=== PATIENT | female | born 1960 | race Caucasian/White ===

== ENCOUNTER 2023-02-05 10:22 | Outpatient (CLI) | payer BC, SELFPAY | END 2023-02-05 10:23 | disposition home or self-care (01) | PROVIDERS: PCP Internal Medicine; Visit Provider Obstetrics & Gynecology | DX: Z01.419 Encounter for gynecological examination (general) (routine) without abnormal findings (principal); Z13.6 Encounter for screening for cardiovascular disorders; Z87.448 Personal history of other diseases of urinary system | CPT/HCPCS: 80061; 82947; 87086 ==

== ENCOUNTER 2023-06-12 11:47 | Outpatient (CLI) | payer BC, SELFPAY ==
--- NOTE | 2023-06-12 13:01 | W.ANESCHARGE ---
Anesthesia Charges Start Date/Time Anesthesia Start Date: 06/12/23 Anesthesia Start Time: 12:56 Stop Date/Time Anesthesia Stop Date: 06/12/23 Anesthesia Stop Time: 13:28
--- NOTE | 2023-06-12 13:31 | W.ANESCHARGE ---
Anesthesia Charges Start Date/Time Anesthesia Start Date: 06/12/23 Anesthesia Start Time: 12:56 Stop Date/Time Anesthesia Stop Date: 06/12/23 Anesthesia Stop Time: 13:28
== END 2023-06-12 11:48 | disposition home or self-care (01) ==
LOC: OP CLINIC 11:48
PROVIDERS: PCP Internal Medicine; Visit Provider Internal Medicine
DX: Z12.11 Encounter for screening for malignant neoplasm of colon (principal); K63.5 Polyp of colon; Z86.010 Personal history of colon polyps
CPT/HCPCS: 00811; 45385; 88305; J2371; J2405; J2704

== ENCOUNTER 2024-06-23 08:27 | Outpatient (CLI) | payer MEDICARE, BC, SELFPAY | END 2024-06-23 08:28 | disposition home or self-care (01) | PROVIDERS: PCP Nurse Practitioner Family; Visit Provider Nurse Practitioner Family | DX: Z00.00 Encounter for general adult medical examination without abnormal findings (principal); M85.80 Other specified disorders of bone density and structure, unspecified site; R31.29 Other microscopic hematuria; Z13.6 Encounter for screening for cardiovascular disorders; Z13.0 Encounter for screening for diseases of the blood and blood-forming organs and certain disorders involving the immune mechanism | CPT/HCPCS: 80053; 80061; 81001; 85025; 87086 ==

== ENCOUNTER 2024-07-23 13:13 | Outpatient (CLI) | payer MEDICARE, BC, SELFPAY ==
--- NOTE | 2024-07-23 13:30 | CRLHL7_ITS ---
For Patients: As a result of the Century Cures Act, medical imaging exams and procedure reports are released immediately into your electronic medical record. You may view this report before your referring provider. If you have questions, please contact your health care provider. DXA BONE MINERAL DENSITY STUDY Reason for exam: Osteopenia. Current height (in): 65. Weight (lb): 136. Menopause age: 33. Ethnicity: White. 1. Have you had a previous hip or vertebral fracture? No. 2. Have you had any fractures during your adult life which did not result from significant trauma (e.g., auto accident)? No. 3. Did either of your parents have a hip fracture? No. 4. Do you smoke? No. 5. Have you ever taken Glucocorticoids? No. 6. Do you have rheumatoid arthritis? No. 7. Do you have secondary osteoporosis? No. 8. Do you drink 3 or more alcoholic drinks per day? No. 9. Are you being treated for osteoporosis? No. 10. Have you ever taken any of the following medications: Actonel, Evista, Fosamax, Miacalcin, Reclast, Boniva, Forteo, HRT (i.e., estrogen/hormone therapy), Protelos, Prolia, Vitamin D, Calcium, other ??? please specify. ANSWER: No. 11. Do you have any of the following medical conditions: Anorexia or bulimia, asthma or emphysema, end stage renal disease, hyperparathyroidism, any seizure disorders, cancer, inflammatory bowel diseases, hysterectomy, other ??? please specify. ANSWER: Yes, cancer and hysterectomy. 12. What was your maximum height (inches)? 66. 13. Do you perform weight bearing exercise regularly? No. 14. Do you regularly consume dairy products? Yes. 15. Do you drink caffeinated beverages? Yes. 16. At what age did your period start? 11. 17. Are you premenopausal? No. 18. How many full-term pregnancies have you had? 2. 19. Have you ever missed your period for more than 6 months in a row (not including or menopause)? No. TECHNIQUE: Bone mineral density study was performed using the [employer]. FINDINGS: The results of the study expressed as bone mineral density (BMD) are as follows: Lumbar spine L2 to L4: BMD: 0.800 g/cm2. T-score: -2.5. Z-score: -0.6 Neck Left: BMD: 0.616 g/cm2. T-score: -2.1. Z-score: -0.5 Right: BMD: 0.662 g/cm2. T-score: -1.7. Z-score: -0.1 Total Left: BMD: 0.777 g/cm2. T-score: -1.4. Z-score: -0.1 Right: BMD: 0.856 g/cm2. T-score: -0.7. Z-score: 0.6 IMPRESSION: Osteoporosis. *Comparison exams done prior to 01/2020 were performed on different unit, [facility]. Rolando Du M.D. Diagnostic Radiologist [email or web address] BROCK/yung barragan/Dictated by: Rolando Du MD @ 07/25/2024 12:21:00 PM (Electronically Signed)
== END 2024-07-23 13:14 | disposition home or self-care (01) ==
LOC: RAD 13:13
PROVIDERS: PCP Nurse Practitioner Family; Visit Provider Nurse Practitioner Family
DX: M85.80 Other specified disorders of bone density and structure, unspecified site (principal); M85.89 Other specified disorders of bone density and structure, multiple sites; Z78.0 Asymptomatic menopausal state
CPT/HCPCS: 77080

== ENCOUNTER 2025-06-23 10:28 | Outpatient (CLI) | payer MEDICARE, BC, SELFPAY | END 2025-06-23 10:29 | disposition home or self-care (01) | PROVIDERS: PCP Nurse Practitioner Family; Visit Provider Nurse Practitioner Family | DX: Z00.00 Encounter for general adult medical examination without abnormal findings (principal); M81.0 Age-related osteoporosis without current pathological fracture; G25.81 Restless legs syndrome; Z13.0 Encounter for screening for diseases of the blood and blood-forming organs and certain disorders involving the immune mechanism | CPT/HCPCS: 80053; 80061; 82306; 82607; 82728; 83540; 85025 ==